=== PATIENT | female | born 1995 | race African-American/Black ===

== ENCOUNTER 2021-05-13 21:01 | Emergency (ER) | payer MEDICAID ==
[~2021-05-13] VITALS: Ht 167.6 cm; Wt 110.0 kg
[2021-05-14] MEDS ORDERED: IBUPROFEN 600MG TABLET PO ONE (01:00)
[2021-05-14] MEDS ORDERED: IBUP-2029 MT (03:30)
[2021-05-14 03:38] VITALS: BP 110/65
== END 2021-05-14 03:52 | disposition home or self-care (01) ==
LOC: ER 21:01
DX: R07.0 Pain in throat (principal); I10 Essential (primary) hypertension; Z20.822 Contact with and (suspected) exposure to COVID-19
CPT/HCPCS: 87426; 93005; 99284